=== PATIENT | female | born 1950 | race Caucasian/White ===

== ENCOUNTER 2017-02-09 11:20 | Observation (INO) | payer MEDICARE, OTHER ==
[2017-02-08 21:03] VITALS: PULSE 54
[2017-02-09] VITALS (8 sets, daily range): BP systolic 129–171; BP diastolic 62–72; PULSE 42–78; RESP 16–18; TEMP 96.6–98.4; O2SAT 95–98
[~2017-02-09] VITALS: Ht 162.6 cm; Wt 75.0 kg
[2017-02-09] MEDS ORDERED: SODIUM CHLORIDE 0.9% FLUSH 5 ML FLUSH IVF PRN ×2 (12:00→14:30)
[2017-02-09] MEDS ORDERED: ASPIRIN 81 MG CHEW TAB PO ONE (12:00)
[2017-02-09] MEDS ORDERED: CIPR500T2 PO (12:04)
[2017-02-09] MEDS ORDERED: CITA20TA4 PO (12:04)
[2017-02-09] MEDS ORDERED: OMEP20TA PO (12:04)
[2017-02-09] MEDS ORDERED: TRAZ50TA12 PO (12:04)
[2017-02-09] MEDS ORDERED: METH4PAK PO (12:04)
--- NOTE | 2017-02-09 12:21 | PD ---
HPI Chief Complaint: Respiratory Symptoms Time Seen by Provider: 11:41 Travel History International Travel<30 days: No Contact w/Intl Traveler<30days: No Traveled to known affect area: No History of Present Illness HPI Patient is a 66-year-old female who presents emergency department with complaint of chest pain and shortness of breath. Patient states that for the last 2 weeks she has had left-sided chest pain that radiates around the left breast, and down the left arm with associated shortness of breath and dizziness. Pain is pressure, occasionally sharp. She states that shortness of breath and pain are made worse slightly with exertion. Pain is mild at this time, 1 out of 10. Patient denies any known history of cardiac disease. States that she previously had a stress test approximately 2 years ago in [place]. Patient is from [place]. Traveled to [place] in September by a three- hour air flight. She has been asymptomatic in the interim until the last 2 weeks. 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) Tetanus Vaccination: > 5 Years Influenza Vaccination: Yes ?: Not Past Surgical History Hysterectomy: Yes Joint Replacement: Yes (BILAT THUMB JOINT REPLACE WITH TENDONS ) Other Surgery: Yes (BILAT HIGH TIBIAL OSTEOTOMY) Social History Alcohol Use: No Tobacco Use: No Substance Use: No Allergies-Medications (Allergen,Severity, Reaction): Coded Allergies: Adhesives (Verified Allergy, Severe, IRRITATION, 02/09/17) Gabapentin (Verified Allergy, Severe, FLU LIKE SYMPTOMS, 02/09/17) Lipitor (Verified Allergy, Severe, MUSCLE SPASM, 02/09/17) Penicillin (Verified Allergy, Severe, HIVES, 02/09/17) Terazol 7 (Verified Allergy, Severe, HYPOTENSION, 02/09/17) Vicodin (Verified Allergy, Severe, AGITATION, 02/09/17) Uncoded Allergies: L-LYSINE (Allergy, Severe, HIVES, 02/09/17) Reported Meds & Prescriptions Reported Meds & Active Scripts Active Reported Omeprazole 20 Mg Tab 20 Mg PO DAILY Citalopram (Citalopram Hydrobromide) 20 Mg Tab 20 Mg PO DAILY Trazodone (Trazodone HCl) 50 Mg Tab 50 Mg PO HS Methylprednisolone Dosepak (Methylprednisolone) 4 Dspk 4 Mg PO DIRECTED Per Pharmacist Direction Ciprofloxacin (Ciprofloxacin HCl) 500 Mg Tab 500 Mg PO BID Review of Systems Except as stated in HPI: all other systems reviewed are Neg Physical Exam Narrative GENERAL: Well-appearing elderly female in no acute distress SKIN: Warm and dry. HEAD: Normocephalic. EYES: No scleral icterus. No injection or drainage. ENT: Mucous membranes pink and moist. NECK: Supple CARDIOVASCULAR: Regular rate and rhythm. No murmur appreciated. RESPIRATORY: No accessory muscle use. Sightly decreased in bilateral bases GASTROINTESTINAL: Abdomen soft, non-tender, nondistended. MUSCULOSKELETAL: No obvious deformities. No edema. NEUROLOGICAL: Awake and alert. Normal speech. PSYCHIATRIC: Appropriate mood and affect; insight and judgment normal. Data Data Last Documented VS Vital Signs Date Time Temp Pulse Resp B/P Pulse Ox O2 Delivery O2 Flow Rate FiO2 02/09/17 11:54 46 16 142/69 96 Nasal Cannula 2 141/72 02/09/17 11:24 98.2 Orders Electrocardiogram (02/09/17 11:37) Basic Metabolic Panel (Bmp) (02/09/17 11:53) Ckmb (Isoenzyme) Profile (02/09/17 11:53) Complete Blood Count With Diff (02/09/17 11:53) Magnesium (Mg) (02/09/17 11:53) Prothrombin Time / Inr (Pt) (02/09/17 11:53) Act Partial Throm Time (Ptt) (02/09/17 11:53) Troponin I (02/09/17 11:53) Chest, Single Ap (02/09/17 11:53) Ecg Monitoring (02/09/17 11:53) Bilateral Bp Monitoring (02/09/17 11:53) Iv Access Insert/Monitor (02/09/17 11:53) Oximetry (02/09/17 11:53) Aspirin Chew (Aspirin Chew) (02/09/17 12:00) Sodium Chloride 0.9% Flush (Ns Flush) (02/09/17 12:00) CKMB (02/09/17 11:50) CKMB% (02/09/17 11:50) Labs Laboratory Tests Test 02/09/17 11:50 White Blood Count 11.4 TH/MM3 Red Blood Count 5.07 MIL/MM3 Hemoglobin 14.2 GM/DL Hematocrit 42.9 % Mean Corpuscular Volume 84.7 FL Mean Corpuscular Hemoglobin 28.1 PG Mean Corpuscular Hemoglobin 33.1 % Concent Red Cell Distribution Width 14.4 % Platelet Count 250 TH/MM3 Mean Platelet Volume 8.9 FL Neutrophils (%) (Auto) 88.3 % Lymphocytes (%) (Auto) 7.6 % Monocytes (%) (Auto) 3.7 % Eosinophils (%) (Auto) 0.1 % Basophils (%) (Auto) 0.3 % Neutrophils # (Auto) 10.0 TH/MM3 Lymphocytes # (Auto) 0.9 TH/MM3 Monocytes # (Auto) 0.4 TH/MM3 Eosinophils # (Auto) 0.0 TH/MM3 Basophils # (Auto) 0.0 TH/MM3 CBC Comment DIFF FINAL Differential Comment Prothrombin Time 10.9 SEC Prothromb Time International 1.0 RATIO Ratio Activated Partial 26.8 SEC Thromboplast Time Sodium Level 140 MEQ/L Potassium Level 4.4 MEQ/L Chloride Level 106 MEQ/L Carbon Dioxide Level 24.7 MEQ/L Anion Gap 9 MEQ/L Blood Urea Nitrogen 9 MG/DL Creatinine 0.71 MG/DL Estimat Glomerular Filtration 82 ML/MIN Rate Random Glucose 102 MG/DL Calcium Level 9.4 MG/DL Magnesium Level 2.3 MG/DL Total Creatine Kinase 109 U/L Creatine Kinase MB LESS THAN 0.5 NG/ML Troponin I LESS THAN 0.02 NG/ML MDM Medical Decision Making Medical Screen Exam Complete: Yes Emergency Medical Condition: Yes Medical Record Reviewed: Yes Differential Diagnosis 66-year-old female here with complaint of 2 weeks of left-sided chest pain radiating down the left arm with shortness of breath and dizziness. Differential includes ACS, atypical chest pain, musculoskeletal, GERD, and less likely PE or dissection. Narrative Course Patient placed on monitor, IV established and blood obtained. A twelve-lead EKG shows sinus bradycardia, rate 53. Patient has T-wave inversions in V1 and inferior leads 3, aVF. I do not have an old EKG on file with which to compare. She was given aspirin and at this time is pain-free and therefore was not given any nitrates. Records were obtained from [place] showing a previous EKG with T-wave inversions in V1 through V4, 3 and T wave and flattening in aVF. Nuclear stress test obtained March 2015 that was negative with a fixed anterior defect. Moderate sized. Portable chest x-ray obtained here that by my read shows no acute abnormalities. CBC, BMP, magnesium, CK-MB, troponin, coags unremarkable. Given patient's age, recommend admission for serial enzymes, provocative testing. Patient is agreeable to same and will be admitted to chest pain center. Diagnosis Primary Impression: Chest pain Qualified Code: R07.2 - Precordial pain Additional Impression: Dyspnea Qualified Code: R06.09 - Dyspnea on exertion Admitting Information Admitting Physician Requests: Karon Brooks MD Feb 09, 2017 12:21
[2017-02-09 12:29] LABS: BASOPHIL % 0.3 % (0.0-2.0); EOSINOPHIL % 0.1 % (0.0-4.0); HEMATOCRIT 42.9 % (35.0-46.0); HEMO FLAGS DIFF FINAL; LYMPH % 7.6 % (9.0-44.0); LYMPHOCYTE # 0.9 TH/MM3 (1.0-4.8); MEAN CELL VOLUME 84.7 FL (80.0-100.0); MEAN CORPUSCULAR HEMOGLOBIN 28.1 PG (27.0-34.0); MEAN CORPUSCULAR HGB CONC 33.1 % (32.0-36.0); MONO % 3.7 % (0.0-8.0); NEUT % 88.3 % (16.0-70.0); PLATELET COUNT 250 TH/MM3 (150-450); RED BLOOD COUNT 5.07 MIL/MM3 (4.00-5.30); RED CELL DISTRIBUTION WIDTH 14.4 % (11.6-17.2); WHITE BLOOD COUNT 11.4 TH/MM3 (4.0-11.0)
--- NOTE | 2017-02-09 12:36 | RADRPT ---
EXAM DATE/TIME: 02/09/2017 12:09 [facility] COMPARISON: No previous studies available for comparison. INDICATIONS : Chest Pain MEDICAL HISTORY : Asthma SURGICAL HISTORY : Biopsy on right breast ENCOUNTER: Initial ACUITY: 1 day PAIN SCORE: 3/10 LOCATION: Bilateral chest FINDINGS: A single view of the chest demonstrates the lungs to be symmetrically aerated without evidence of mas s, infiltrate or effusion. The cardiomediastinal contours are unremarkable. Osseous structures are intact. CONCLUSION: No acute disease. Jacinto Gonzales MD on February 09, 2017 at 12:34 Board Certified Radiologist. This report was verified electronically.
[2017-02-09 12:45] LABS: PROTHROMBIN TIME - PATIENT 10.9 SEC (9.8-11.6)
[2017-02-09 12:49] LABS: ANION GAP 9 MEQ/L (5-15); BICARBONATE 24.7 MEQ/L (21.0-32.0); BLOOD UREA NITROGEN 9 MG/DL (7-18); CHLORIDE 106 MEQ/L (98-107); CREATINE KINASE 109 U/L (26-192); GLOMERULAR FILTRATION RATE 82 ML/MIN (>89); MAGNESIUM 2.3 MG/DL (1.5-2.5); SODIUM (NA) 140 MEQ/L (136-145)
[2017-02-09 12:50] LABS: POTASSIUM 4.4 MEQ/L (3.5-5.1)
[2017-02-09 12:51] LABS: APTT (PATIENT) 26.8 SEC (24.3-30.1)
[2017-02-09 13:02] LABS: CKMB LESS THAN 0.5 NG/ML (0.5-3.6)
[2017-02-09] MEDS ORDERED: IBUPROFEN 600 MG TAB PO PRN (14:30)
[2017-02-09] MEDS ORDERED: ONDANSETRON HCL 4 MG/2 ML VIAL IV PRN (14:30)
--- NOTE | 2017-02-09 14:40 | HHI.HP ---
HPI Primary Care Physician Non-Staff Chief Complaint Chest pain and shortness of breath History of Present Illness This is a 66-year-old female that presents to the ED via private vehicle complaining of a constant central and left-sided chest discomfort that began 2 weeks ago. It is still there now. She states at baseline is very mild as about a 1-2 out of 10. However it is increased significantly when she coughs, twists, or when she lies on her left side in bed. She has had a little bit of diaphoresis at times. Then yesterday she also became short of breath with her symptoms. She went to an urgent care center and states that she was told that she has urinary tract infection and an ear infection. She was given antibiotics and steroids. She states the discomfort is not as bad. Denies history of CAD. Patient states she had a cardiac evaluation in 2014 and had a normal stress test. The ER physician was able to obtain the records from that evaluation and found a nonischemic chemical stress test aided 04/25/15. There was a fixed anterior defect moderate size. EF was 83%. Her EKG today also shows some nonspecific T-wave changes which also present on prior EKG from those 2015 records. Patient is here from [place]. She and her flew [place] in September. Denies calf pain or swelling. Denies inspirational chest discomfort. Review of Systems General: Patient denies fevers, chills recent, and recent travel HEENT: Patient denies headache, sore throat, difficulty swallowing. Cardiovascular: Has the chest discomfort as mentioned above. Denies sensation of heart beating rapidly or irregularly. No syncope. At times a little diaphoretic. Respiratory: Patient has had an occasional cough. She began having shortness of breath yesterday. Denies wheezing or hemoptysis. GI: Patient denies nausea, vomiting, diarrhea, abdominal pain, bloody stools. Musculoskeletal: Patient denies joint pain or edema. Denies calf pain or edema. Neurovascular: Patient denies numbness, tingling, weakness in extremities. Denies headache. Endocrine: Denies polyuria and polydipsia. Hematologic: Denies easy bruising. Skin: Denies rash or itching. Past Family Social History Allergies: Coded Allergies: Adhesives (Verified Allergy, Severe, IRRITATION, 02/09/17) Gabapentin (Verified Allergy, Severe, FLU LIKE SYMPTOMS, 02/09/17) Lipitor (Verified Allergy, Severe, MUSCLE SPASM, 02/09/17) Penicillin (Verified Allergy, Severe, HIVES, 02/09/17) Terazol 7 (Verified Allergy, Severe, HYPOTENSION, 02/09/17) Vicodin (Verified Allergy, Severe, AGITATION, 02/09/17) Uncoded Allergies: L-LYSINE (Allergy, Severe, HIVES, 02/09/17) Past Medical History Hypothyroidism and GERD. Hyperlipidemia however she has not taken statin therapy in quite some time. She states that her reaction to Lipitor causing myalgias but states her lipid panel has been okay since. Denies hypertension, CAD, and diabetes. Past Surgical History Left ankle, bilateral thumbs, and hysterectomy Reported Medications Reported Meds & Active Scripts Active Reported Omeprazole 20 Mg Tab 20 Mg PO DAILY Citalopram (Citalopram Hydrobromide) 20 Mg Tab 20 Mg PO DAILY Trazodone (Trazodone HCl) 50 Mg Tab 50 Mg PO HS Methylprednisolone Dosepak (Methylprednisolone) 4 Dspk 4 Mg PO DIRECTED Per Pharmacist Direction Ciprofloxacin (Ciprofloxacin HCl) 500 Mg Tab 500 Mg PO BID Active Ordered Medications Current Medications Medications (Trade) Dose Ordered Sig/Carlos Route Start Time Stop Time Status Last Admin (NS Flush) 2 ml UNSCH PRN IVF 02/09/17 12:00 (NS Flush) 2 ml UNSCH PRN IVF 02/09/17 14:30 UNV (NS Flush) 2 ml BID IVF 02/09/17 21:00 UNV (Zofran Inj) 4 mg Q6H PRN IV 02/09/17 14:30 UNV (Aspirin) 325 mg DAILY PO 02/10/17 09:00 UNV (Motrin) 600 mg Q8H PRN PO 02/09/17 14:30 UNV (Cipro) 500 mg BID PO 02/09/17 21:00 UNV (CeleXA) 20 mg DAILY PO 02/10/17 09:00 UNV (Desyrel) 50 mg HS PO 02/09/17 21:00 UNV Non-Formulary Medication 20 mg DAILY PO 02/10/17 09:00 UNV Family History Denies family history of CAD. Social History Patient is a lifetime nonsmoker. Denies illicit drugs. She has occasional alcohol. She is . Physical Exam Vital Signs Vital Signs Date Time Temp Pulse Resp B/P Pulse Ox O2 Delivery O2 Flow Rate FiO2 02/09/17 14:00 45 16 129/67 97 Nasal Cannula 2 02/09/17 11:54 46 16 142/69 96 Nasal Cannula 2 141/72 02/09/17 11:24 98.2 59 17 171/72 95 Physical Exam GENERAL: This is a well-nourished, well-developed patient, in no apparent distress. Patient speaks in clear complete sentences. Patient is pleasant. Her is also at the bedside who is very pleasant. HEENT: Head is atraumatic and normocephalic. Neck is supple without lymphadenopathy and trachea is midline. No JVD or carotid bruits. CARDIOVASCULAR: Regular rate and rhythm without murmurs, gallops, or rubs. RESPIRATORY: There is tenderness easily reproducible when palpating the chest wall from the center of the chest going over to left lateral aspect. This also is exacerbated with twisting of the torso. Clear to auscultation. Breath sounds equal bilaterally. No wheezes, rales, or rhonchi. No use of accessory muscles. GASTROINTESTINAL: Abdomen is nontender, nondistended. Abdomen soft. No obvious pulsatile mass or bruit. No CVA tenderness. Strong femoral pulses bilaterally. Normal bowel sounds in all quadrants. MUSCULOSKELETAL: Patient is moving upper and lower extremities freely. No calf tenderness or edema, no Homans sign. Strong pulses in upper and lower extremities. NEUROLOGICAL: Patient is alert and oriented. Cranial nerves 2-12 are grossly intact. No focal deficits and speech is clear. SKIN: No rash and turgor is normal. Laboratory Laboratory Tests Test 02/09/17 11:50 White Blood Count 11.4 Red Blood Count 5.07 Hemoglobin 14.2 Hematocrit 42.9 Mean Corpuscular Volume 84.7 Mean Corpuscular Hemoglobin 28.1 Mean Corpuscular Hemoglobin 33.1 Concent Red Cell Distribution Width 14.4 Platelet Count 250 Mean Platelet Volume 8.9 Neutrophils (%) (Auto) 88.3 Lymphocytes (%) (Auto) 7.6 Monocytes (%) (Auto) 3.7 Eosinophils (%) (Auto) 0.1 Basophils (%) (Auto) 0.3 Neutrophils # (Auto) 10.0 Lymphocytes # (Auto) 0.9 Monocytes # (Auto) 0.4 Eosinophils # (Auto) 0.0 Basophils # (Auto) 0.0 CBC Comment DIFF FINAL Differential Comment Prothrombin Time 10.9 Prothromb Time International 1.0 Ratio Activated Partial 26.8 Thromboplast Time Sodium Level 140 Potassium Level 4.4 Chloride Level 106 Carbon Dioxide Level 24.7 Anion Gap 9 Blood Urea Nitrogen 9 Creatinine 0.71 Estimat Glomerular Filtration 82 Rate Random Glucose 102 Calcium Level 9.4 Magnesium Level 2.3 Total Creatine Kinase 109 Creatine Kinase MB LESS THAN 0.5 Troponin I LESS THAN 0.02 Result Diagram: 02/09/17 1150 02/09/17 1150 Imaging Chest x-ray reveals nothing acute. Course Initial EKG has nonspecific inferior anterior T-wave changes which are present records obtained from a prior EKG from 2014. Assessment and Plan Assessment and Plan * Atypical chest pain: Patient will continue to have serial cardiac enzymes and EKGs for ruling out purposes. She will be seen by Dr. Hassan cardiology and the chest pain center. If she rules out she will likely proceed with a Lexiscan myocardial perfusion stress test in the morning. She will likely be discharged home if her stress test were to be nonischemic. * GERD: Continue current medication. Patient is stable at this time. She is agreeable to this plan. Jorge Bowser Feb 09, 2017 14:39
[2017-02-09 15:47] LABS: CREATINE KINASE 51 U/L (26-192)
[2017-02-09] MEDS ORDERED: cloNIDine HCL 0.1 MG TAB PO PRN (17:45)
[2017-02-09 18:51] LABS: CREATINE KINASE 43 U/L (26-192)
[2017-02-09] MEDS ORDERED: traZODone HCL 50 MG TAB PO SCH (21:00)
[2017-02-09] MEDS: CIPROFLOXACIN 500 MG TAB PO SCH (21:02)
[2017-02-09] MEDS: SODIUM CHLORIDE 0.9% FLUSH 5 ML FLUSH IVF SCH (21:02)
[2017-02-10] VITALS (8 sets, daily range): BP systolic 126–143; BP diastolic 60–70; PULSE 40–101; RESP 18–20; TEMP 97.8–98.7; O2SAT 97–100
[2017-02-10] MEDS ORDERED: ASPIRIN 325 MG TAB PO SCH (09:00)
[2017-02-10] MEDS ORDERED: PANTOPRAZOLE SOD 20 MG DELAYED RELEASE TAB PO SCH (09:00)
[2017-02-10] MEDS ORDERED: CITALOPRAM HYDROBROMIDE 20 MG TAB PO SCH (09:00)
[2017-02-10] MEDS ORDERED: REGADENOSON INJ 0.4 MG/5 ML SYR ONE (09:19)
[2017-02-10] MEDS: CIPROFLOXACIN 500 MG TAB PO SCH (10:51)
[2017-02-10] MEDS: SODIUM CHLORIDE 0.9% FLUSH 5 ML FLUSH IVF SCH (10:52)
--- NOTE | 2017-02-10 11:05 | RADRPT ---
EXAM DATE/TIME: 02/10/2017 09:10 [facility] COMPARISON: No previous studies available for comparison. INDICATIONS : Substernal chest pain with diaphoresis. Angina. DOSE: 25.5 mCi Tc99m Myoview at stress. 8.1 mCi Tc99m Myoview at rest. 0.4 mg Lexiscan STRESS SYMPTOMS: Shortness of breath. EJECTION FRACTION: 66% MEDICAL HISTORY : Gastroesophageal reflux disease. Hypothyroidism. SURGICAL HISTORY : Hysterectomy. Left ankle and bilateral thumbs. ENCOUNTER: Initial ACUITY: 1 day PAIN SCALE: 6/10 LOCATION: Substernal chest TECHNIQUE: The patient underwent pharmacologic stress with infusion of prescribed dose. Continuous ECG tracing was monitored during stress. Gated SPECT imaging was performed after stress and conventional SPECT i maging was performed at rest. The examination was performed on a SPECT/CT scanner, both attenuation and non-corrected datasets were reviewed. FINDINGS: DISTRIBUTION: The maximum perfused segment at stress is in the inferior wall. PERFUSION STUDY: The pattern of perfusion at stress is within normal limits. GATED STUDY: There is intact wall motion and thickening without hypokinetic or dyskinetic segments. CONCLUSION: No areas of ischemia are seen. RISK CATEGORY: Low (<1% Annual Mortality Rate) Jacinto Gonzales MD on February 10, 2017 at 10:58 Board Certified Radiologist. This report was verified electronically.
--- NOTE | 2017-02-10 11:53 | HHI.DCPOC ---
Discharge Care Plan Diagnosis: (1) Chest pain Goals to Promote Your Health * To prevent worsening of your condition and complications * To maintain your health at the optimal level Directions to Meet Your Goals Take your medications as prescribed Follow your dietary instruction Follow activity as directed Keep your appointments as scheduled Take your immunizations and boosters as scheduled If your symptoms worsen call your PCP, if no PCP go to Urgent Care Center or Emergency Room Smoking is Dangerous to Your Health. Avoid second hand smoke Call the 24-hour hour crisis hotline for domestic abuse at Jorge Bowser Feb 10, 2017 11:53
--- NOTE | 2017-02-10 16:40 | TR ---
Date Performed: 02/10/2017 Time Performed: 09:39:38 DOCTOR: Angelica Hassan DRUG LIST: CLINICAL HISTORY: ANGINA REASON FOR TEST: Angina REASON FOR ENDING: OBSERVATION: CONCLUSION: Lexiscan stress test was performed under standard four minute protocol. Radionuclid e was injected one minute prior to ending the test. No electrocardiographic abormalities were present to suggest ischemia. Nuclear imaging and interpretation are pending. COMMENTS:
--- NOTE | 2017-02-10 16:44 | EKG ---
Date Performed: 02/09/2017 Time Performed: 18:08:43 PTAGE: 66 years EKG: SINUS BRADYCARDIA VOLTAGE CRITERIA FOR LVH ABNORMAL ECG Since PREVIOUS TRACING , no significant change noted PREVIOUS TRACIN02/09/2017 15.01 DOCTOR: Angelica Hassan Interpretating Date/Time 02/10/2017 16:43:48
--- NOTE | 2017-02-10 20:17 | EKG ---
Date Performed: 02/09/2017 Time Performed: 15:01:34 PTAGE: 66 years EKG: SINUS BRADYCARDIA VOLTAGE CRITERIA FOR LVH ABNORMAL ECG PREVIOUS TRACING : 02/09/2017 11.41 Compared to the previous tracing rate slower DOCTOR: Vinnie Bauer Interpretating Date/Time 02/10/2017 20:16:06
--- NOTE | 2017-02-10 20:30 | EKG ---
Date Performed: 02/09/2017 Time Performed: 11:41:42 PTAGE: 66 years EKG: SINUS BRADYCARDIA MODERATE VOLTAGE CRITERIA FOR LVH, CONSIDER NORMAL VARIANT BORDERLINE ECG NO PREVIOUS TRACING DOCTOR: Vinnie Bauer Interpretating Date/Time 02/10/2017 20:28:57
== END 2017-02-10 12:53 | disposition home or self-care (01) ==
LOC: NEPE 11:20 → NEDA 13:08 → INTOOBSV 13:08 → NEPFCDU 14:33
PROVIDERS: ADMIT Internal Medicine Interventional Cardiology; ATTEND Internal Medicine Interventional Cardiology
DX: R07.89 Other chest pain (principal); K21.9 Gastro-esophageal reflux disease without esophagitis; E03.9 Hypothyroidism, unspecified; E78.5 Hyperlipidemia, unspecified; J45.909 Unspecified asthma, uncomplicated; M19.90 Unspecified osteoarthritis, unspecified site; F32.9 Major depressive disorder, single episode, unspecified; I10 Essential (primary) hypertension; Z96.693 Finger-joint replacement, bilateral; Z88.3 Allergy status to other anti-infective agents; Z88.0 Allergy status to penicillin; Z88.8 Allergy status to other drugs, medicaments and biological substances; Z79.52 Long term (current) use of systemic steroids
CPT/HCPCS: 71010; 78452; 80048; 82550; 82552; 83735; 84484; 85025; 85610; 85730; 93005; 93017; 99285; A9502; G0378; J2785

== ENCOUNTER 2018-10-27 05:12 | Inpatient (IN) ==
[2018-10-27] MEDS ORDERED: Chlorhexidine 4% Topical 120 APPLIC/120 ML Bottle TOPICAL SCH (06:15)
[2018-10-27] MEDS ORDERED: Chlorhexidine Gluconate 2% 1 Pack (2 Cloths) TOPICAL ONE (06:19)
[2018-10-27] MEDS ORDERED: Metoprolol Tartrate 25 MG Tablet PO ONE (06:19)
[2018-10-27] MEDS ORDERED: ceFAZolin 2 GM Premix Inj 2 GM/50 ML PIGGYBACK IV.SIG SCH (07:00)
[2018-10-27] MEDS ORDERED: Vancomycin Inj 1,000 MG in Sodium Chlor 0.9% Inj 250 ML IV.SIG SCH (07:00)
[2018-10-27] MEDS ORDERED: Sodium Chlor 0.9% Inj 500 ML IV.SIG SCH (07:00)
[2018-10-27] MEDS ORDERED: Bupivacaine/Epinephrine Inj 0.25% 50 ML Vial ONE (07:09)
[2018-10-27] MEDS ORDERED: Bupivacaine/Dextrose 0.75% Inj 2 ML Ampul ONE (07:21)
[2018-10-27] MEDS ORDERED: Sodium Chlor 0.9% Inj 40 ML, Bupivacaine Liposo PF 1.3% Inj 20 ML P-ARTICULR ONE ×2 (07:41)
[2018-10-27] MEDS ORDERED: TRANEXAMIC ACID IV.SIG SCH ×2 (08:00→11:00)
[2018-10-27] MEDS ORDERED: SODIUM CHLOR 0.9% IV.SIG SCH ×2 (08:00→11:00)
--- NOTE | 2018-10-27 09:10 | P.DCO ---
- Physical Therapy Physical Therapy: Gait training, Safety evaluation, Transfer training, bed to chair Hip: Total hip, Protocol: Left Right Lower Extremity Weight Bearing: Weight bearing as tolerated Left Lower Extremity Weight Bearing: Weight bearing as tolerated - Nursing RN: 3 days/week x 2 weeks Dressing changes: Do not change dressing Additional instructions: aspirin 81 mg bid x 4 weeks dvt prop - Certification Need for Home Health services: I have seen patient Lynn Walker on 10/27/18. My clinical findings support the need for the requested home health care services because: Need for Home Health Services: High risk of falls Homebound Certification: I certify that my clinical findings support that this patient is homebound because: Homebound Certification: Post-op weakness
[2018-10-27] MEDS ORDERED: Morphine Sulfate Inj 2 MG/ML Vial IV.PUSH PRN (09:25)
[2018-10-27] MEDS ORDERED: Post-op Orders (for Pharmacy) OTHER STA (09:25)
[2018-10-27] MEDS ORDERED: Bisacodyl 10 MG Supp RECTAL PRN (09:25)
[2018-10-27] MEDS ORDERED: Tranexamic Acid Inj 0 MG in Sodium Chlor 0.9% Inj 100 ML IV.SIG ONE (09:30)
--- NOTE | 2018-10-27 09:36 | P.OP ---
- Preoperative Diagnosis (1) Osteoarthritis of left hip - Postoperative Diagnosis (1) Osteoarthritis of left hip Date of procedure: 10/27/18 Procedure: Left total hip arthroplasty, direct anterior exposure Anesthesia: spinal Surgeon: Dionicio Roy MD Manager Storage: Shailesh Roy MD Operation and Findings: EBL: 300 cc INDICATION: This patient is a 68-year-old female with severe arthritis of the left hip. Despite extensive conservative care, the patient continued to be painful and symptomatic. The patient in my opinion is a candidate for surgical treatment. NOTE: Shailesh Roy MD was present for the entire surgical procedure as my mechanic assistant. In my medical opinion his skill and care was necessary for the proper management of this patient. COMPONENTS: COMPANY: [employer] CUP: [place], 48 mm, 100 series STEM: [place], size 11, coxa vera HEAD: Ceramic, 32 mm, +5, /14 taper LINER: Altrex, neutral PROCEDURE: This patient was brought to the operating room and anesthetized in the supine position. The patient was positioned on the [place] table with the operative leg extended and the contralateral leg held in proper position. The hip and leg was scrubbed with alcohol followed by Hibiclens followed by ChloraPrep and draped sterilely in the clean air suite. Preoperative fluoroscopic images were utilized. A templating x-ray was obtained and printed to be used during the case. A timeout was done and antibiotics were given within a routine time window. A 4 inch incision was made starting 2 cm distal and 2 cm lateral to the anterior superior iliac spine. The tensor fascia silverio fascia was identified and opened longitudinally in line with the incision. Deep retraction allowed good visualization in the interval between the tensor fascia silverio and the rectus and this was opened further. The posterior fascia was opened. Crossing vessels were coagulated appropriately. The anterior aspect of the hip capsule was identified. Retractors were placed above and below the capsule. The capsule was opened longitudinally. Stay sutures were utilized creating flaps for the anterior capsule. The femoral neck was cut at the right location and completed with an oscillating saw. The head and neck was removed and taken to the back table. The leg was externally rotated 60 degrees and traction placed on the extremity. The labrum was excised. A portion of the capsule was excised. Visibility was excellent. Retractors were positioned. Starting 6 mm from the final size reamer, we began reaming up to 1 mm from the anticipated size. This was visualized under fluoroscopy. A trial cup was positioned. This also was visualized under fluoroscopy and minor adjustments were made. The final preparation with a 48 reamer was utilized. The final cup was positioned in approximately 40 degrees of abduction and 20 degrees of forward flexion. This is visualized under fluoroscopy and was seated into the final position. Position was very satisfactory. A single hole eliminator was positioned followed by the plastic liner. The final solution was excellent. Traction was let off. The leg was brought into neutral rotation. A lifting took was positioned underneath the greater trochanter and proximal femur. The leg was maximally externally rotated and the foot drop to the floor across midline. Retractors were positioned. A box osteotome was used to gain entrance into the top of the femur. The canal was probed with a finder to ensure that we were within the canal. Successive broaching up to the final stem size was accomplished. Trial reduction showed excellent balancing. Adjustments were made. The wound was irrigated copiously and the canal irrigated. The final stem was inserted in proper orientation. A final trial reduction was performed, and the final head was impacted. The hip was reduced and with 60 degrees of external rotation the leg to be dropped to the floor without evidence of anterior subluxation. Intraoperative x-rays were obtained. Local anesthesia was utilized for a field block including posterior capsule, inferior capsule, cephalad capsule, region of the greater trochanter, tensor fascia silverio and subcutaneous tissue. The anterior capsule was repaired with interrupted #2 Tycron sutures. The fascia was run with 0 PDS on a loop. Subcutaneous tissue was approximated 2-0 Vicryl suture and skin with running intradermal 3-0 Vicryl followed by benzoin and Steri-Strips. A sterile dressing was applied. The patient was awakened and taken to the recovery room in satisfactory condition FINDINGS: There was severe osteoarthritis of the right hip. The patient had a coxa vera deformity. The previous right total hip replacement was positioned slightly shorter than the left hips natural anatomy. We positioned the left hip to the exact same anatomic position it was prior to surgical treatment
--- NOTE | 2018-10-27 10:11 | XR ---
EXAM DATE: 10/27/2018 10:04 AM EST AGE/SEX: 68 years / Female INDICATIONS: Post-op total left hip arthroplasty. CLINICAL DATA: This is the patient's initial encounter. Patient reports that signs and symptoms have been present for 1 day and indicates a pain score of Nonresponsive. MEDICAL/SURGICAL HISTORY: Non-responsive. . Total right hip arthroplasty. COMPARISON: No prior exams available for comparison. FINDINGS: Left total hip arthroplasty present. Hardware appears intact. Alignment is anatomic. CONCLUSION: Satisfactory appearance of left EDA Electronically signed by: Jacinto Liu MD 10/27/2018 10:09 AM EST
[2018-10-27] MEDS: ceFAZolin 1 GM Premix Inj 1 GM/50 ML FROZ.PIGGY IV.SIG SCH ×3 (13:24→20:31)
[2018-10-27] MEDS ORDERED: Acetaminophen 325 MG Tablet PO PRN (19:36)
[2018-10-27] MEDS: Acetaminophen/Codeine 300/30 MG Tablet PO PRN (20:31)
[2018-10-27] MEDS: Senna/Docusate Sodium 8.6/50 MG Tablet PO SCH (20:32)
[2018-10-27] MEDS ORDERED: traZODone 50 MG Tablet PO SCH (21:00)
[2018-10-28] MEDS: Acetaminophen/Codeine 300/30 MG Tablet PO PRN ×2 (03:48→10:00)
--- NOTE | 2018-10-28 07:07 | P.PNOP ---
Subjective Interval history: pt doing well, post operative hip pain no other voiced complaints Physical Exam Vital signs: Vital Signs 10/27/18 10:03 10/27/18 10:15 10/27/18 10:30 Temperature 98.1 F Pulse Rate 57 L 54 L 56 L Respiratory Rate 15 12 12 Blood Pressure 120/56 L 113/57 L 108/59 L Pulse Oximetry 94 L 94 L 92 L 10/27/18 10:45 10/27/18 11:00 10/27/18 12:00 Temperature Pulse Rate 55 L 55 L 65 Respiratory Rate 14 18 23 Blood Pressure 111/55 L 108/56 L 112/65 Pulse Oximetry 94 L 93 L 97 10/27/18 13:00 10/27/18 16:50 10/27/18 20:00 Temperature 99.6 F 99.9 F H Pulse Rate 69 76 89 Respiratory Rate 19 18 20 Blood Pressure 126/75 128/64 129/68 Pulse Oximetry 93 L 95 94 L 10/28/18 00:18 10/28/18 03:59 Temperature 100.2 F H 99.0 F Pulse Rate 86 80 Respiratory Rate 18 18 Blood Pressure 129/62 109/59 L Pulse Oximetry 94 L 93 L Intake & Output 10/27/18 10/28/18 10/28/18 18:59 06:59 18:59 Intake Total 2868.01 / 2868.01 1410 / 1410 Output Total 300 / 300 Balance 2568.01 / 2568.01 1410 / 1410 Weight 80.1 kg 86.9 kg Intake: IV 1558.01 / 1558.01 1050 / 1050 LR 1000 mL Inj 1,000 ML @ 80 1000 / 1000 mls/hr IV.CONT .[id number] OTTO Rx# :[id number] LR 1000 mL Inj 1,000 ML @ 30 1000 / 1000 mls/hr IV.SIG .Q24H OTTO Rx#: [id number] Cyklokapron Inj 801 MG In NS 108.01 / 108.01 Inj 100 ML @ 200 mls/hr IV.SIG ONCE OTTO Rx#:[id number] Vancomycin Inj 1,000 MG In NS 250 / 250 Inj 250 ML @ 250 mls/hr IV.SIG [employer] OTTO Rx#:[id number] Ancef 1 GM Premix Inj 1 gm In 150 / 150 50 / 50 50 ml @ 100 mls/hr IV.SIG Q6H OTTO Rx#:[id number] Ancef 2 GM Premix Inj 2 gm In 50 / 50 50 ml @ 100 mls/hr IV.SIG [employer] OTTO Rx#:[id number] Oral 810 / 810 360 / 360 Anesthesia Amount 500 / 500 Output: Estimated Blood Loss 300 / 300 Other: # Voids 1 1 # Bowel Movements 0 Narrative: seen and examined by Dr. Shailesh Roy left hip dressing dry and intact +NVI no calf tenderness Results - Labs Laboratory Results - last 24 hr 10/27/18 06:20 Blood Type A Negative Antibody Screen Negative MTS Gel Crossmatch See Detail - Imaging Impressions Hip X-Ray 10/27/18 00:00 CONCLUSION: Satisfactory appearance of left EDA Assessment and Plan - Assessment and Plan POD # 1 s/p L EDA PT-WBAT, anterior hip Aspirin 81 mg bid x 4 weeks dvt prop Tylenol #3 escribed to pharmacy discharge home with [facility] today, orthopedically stable
[2018-10-28] MEDS ORDERED: Citalopram 20 MG Tablet PO SCH (09:00)
[2018-10-28] MEDS ORDERED: Pantoprazole Sodium 20 MG DR Tablet PO SCH (09:00)
[2018-10-28 09:11] VITALS: RESP 19
[2018-10-28] MEDS: Senna/Docusate Sodium 8.6/50 MG Tablet PO SCH (09:18)
[2018-10-28 13:42] VITALS: BP 129/60; PULSE 78; TEMP 97.5; O2SAT 94
== END 2018-10-28 15:03 | disposition home health service (06) ==
LOC: HSDI 05:12 → UNDODISIN 14:08 → HSDI 14:32 → N06 14:39
PROVIDERS: ADMIT Orthopaedic Surgery Orthopaedic Surgery of the Spine; ATTEND Orthopaedic Surgery Orthopaedic Surgery of the Spine